=== PATIENT | female | born 1980 | race Caucasian/White ===

== ENCOUNTER 2023-12-27 20:01 | Emergency (ER) | payer OTHER ==
--- NOTE | 2023-12-27 20:08 | ERPHSYRPT ---
- History of Present Illness Time Seen by Provider: 12/27/23 20:08 Source: patient, family Exam Limitations: no limitations Physician History: This is a 43-year-old white female patient who was brought into the emergency department by private vehicle by her significant other complaining of sinus congestion and sinus pressure. Approximately 1 week ago patient was told by her primary care provider that that she does have some sinus congestion complaints but she was told to take DayQuil and other [id number]-icuraiy products. There was mild improvement short-term. However patient states her symptoms returned and she was seen by [facility] in [facility] and told that she had a left earache and likely had sinusitis. Therefore she was started on amoxicillin. She has taken 3 doses of amoxicillin without much benefit per her report. Patient denies cough. Patient denies chest pain, patient denies shortness of breath. She has no abdominal pain. Timing/Duration: gradual onset, weeks (1.5 weeks) ENT Location: ear (L), nose (Sinus pressure and congestion) Prearrival Treatment: prescription meds (Amoxicillin) Modifying Factors: Improves With: nothing Associated Symptoms: ear pain (L), other (Sinus pressure and sinus congestion) Allergies/Adverse Reactions: diphenhydramine [From Benadryl] Allergy (Verified 12/27/23 20:10) haloperidol [From Haldol] Allergy (Verified 12/27/23 20:10) Home Medications: Amoxicillin 400Mg/5Ml [Amoxicillin] 12.5 ml PO TID 12/27/23 [History] Buspirone HCl 7.5 mg PO BID 12/27/23 [History] Levothyroxine Sodium [Synthroid] 50 mcg PO DAILY 12/27/23 [History] Travel Risk - International Travel Have you traveled outside of the country in past 3 weeks: No - Emerging Infectious Disease Are you exhibiting symptoms associated with any current EIDs: No - Review of Systems Constitutional: No Symptoms Eyes: No Symptoms Ears, Nose, & Throat: Nose Congestion, Other (Sinus pressure) Respiratory: No Symptoms Cardiac: No Symptoms Abdominal/Gastrointestinal: No Symptoms Genitourinary Symptoms: No Symptoms Musculoskeletal: No Symptoms Skin: No Symptoms Neurological: No Symptoms Psychological: No Symptoms Endocrine: No Symptoms Hematologic/Lymphatic: No Symptoms Immunological/Allergic: No Symptoms All Other Systems: Reviewed and Negative - Past Medical History Pertinent Past Medical History: Yes - Past Surgical History Past Surgical History: Yes - Nursing Vital Signs Nursing Vital Signs: Initial Vital Signs Temperature 98.6 F 12/27/23 20:13 Pulse Rate 81 12/27/23 20:13 Respiratory Rate 18 12/27/23 20:13 Blood Pressure 125/78 12/27/23 20:13 O2 Sat by Pulse Oximetry 98 12/27/23 20:13 Pain Scale Pain Intensity 2 - Physical Exam General Appearance: no apparent distress, alert, anxiety Eye Exam: bilateral eye: normal inspection, PERRL, EOMI Ear Exam: bilateral ear: auricle normal, canal normal, TM normal Nasal Exam: sinus tenderness (Bilateral maxillary to palpation) Throat Exam: normal, pharynx normal, moist mucus membranes, No dental tenderness, No pharynx swelling, No uvula swelling, No voice changes Neck Exam: normal inspection, non-tender, supple, full range of motion, trachea midline Cardiovascular/Respiratory Exam: chest non-tender, no respiratory distress Abdominal Exam: non-tender Neurologic Exam: alert, oriented x 3, cooperative, unit supervisor II-XII nml as tested, nml cerebellar function, nml station & gait, sensation nml Skin Exam: normal color, warm, dry SpO2 Interpretation: normal O2 Delivery: Room Air - Course Nursing assessment & vital signs reviewed: Yes Ordered Tests: Medication Summary Generic Name Dose Route Start Last Admin Trade Name Cecelia PRN Reason Stop Dose Admin Ceftriaxone Sodium 1,000 mg 12/27/23 20:51 Ceftriaxone Sodium 1000 Mg Inj Vial IM 12/27/23 20:52 STAT ONE - Progress Progress: unchanged Progress Note: 12/27/23 20:55 My medical decision making and the assignment of low complexity to this patient's medical issue today is based on review of the patient's past medical history, review of the patient's medication list, reviewed the patient drug allergy list, history of present illness and physical findings on examination. The workup in this patient does not require laboratory radiographic studies. We will provide the patient with an injection of Rocephin antibiotic intramuscularly as well as an intramuscular injection of Solu-Medrol followed by remotely sending a prescription of prednisone 10 mg orally 3 times a day to her pharmacy. Counseled pt/family regarding: diagnosis, need for follow-up Medical Desision Making - Independent Historian Additional History obtained from: Family - Diagnostic Testing Diagnostic test were ordered, analyzed, and reviewed by me: No - Risk of complications The pt has a mod risk of morbidity or mortality based on: Need for prescription drug management - Departure Departure Disposition: Home Clinical Impression: Sinusitis Condition: Stable Critical Care Time: No Additional Instructions: Drink plenty fluids. Take your medication as prescribed. Return to the emergency department if symptoms worsen. If your symptoms are not worse but persistent, call your primary care provider on 12/30/2023, to make arrangement for follow-up appointment for further evaluation management. Prescriptions: Prednisone 10 mg [Deltasone 10 mg] 10 mg PO TID #12 tablet
[2023-12-27 20:26] VITALS: RESP 18; TEMP 98.6; O2SAT 98
[2023-12-27] MEDS ORDERED: Sterile H2O 10 ml IJ ONE (20:57)
[2023-12-27] MEDS ORDERED: solu-MEDROL ONE (20:57)
[2023-12-27] MEDS ORDERED: Rocephin 1000 MG INJ ONE (20:57)
[2023-12-27] MEDS ORDERED: XYLOCAINE 1% HCL 20 ML MDV ONE (21:00)
[2023-12-27] MEDS: Rocephin 1000 MG INJ IM ONE (21:05)
[2023-12-27] MEDS: solu-MEDROL 125 MG, Sterile H2O 10 ml 2 ML IM ONE (21:07)
[2023-12-27 21:08] VITALS: BP 117/76; PULSE 64
== END 2023-12-27 21:44 | disposition home or self-care (01) ==
LOC: ED 20:01
DX: J32.9 Chronic sinusitis, unspecified (principal); R51.9 Headache, unspecified; Z79.52 Long term (current) use of systemic steroids; Z79.899 Other long term (current) drug therapy
CPT/HCPCS: 96372; 99283; J0696; J2919

== ENCOUNTER 2023-12-29 00:43 | Emergency (ER) | payer OTHER ==
[2023-12-29 00:57] VITALS: TEMP 99
[2023-12-29 01:23] LABS: Appearance Cloudy (Clear); Bacteria Few /HPF (None Seen); Bilirubin Negative (Negative); Blood Negative (Negative); Epithelial Cells Moderate /HPF (None Seen); Glucose, Urine Negative (Negative); Hyaline Casts NONE SEEN /LPF (0-2); Ketones Negative (Negative); Leukocyte Esterase Moderate (Negative); Nitrite Negative (Negative); Ph 5.5 (4.6-8.0); Protein,Urine Dip Trace (Negative); RBC 0-2 /HPF (0-5); Specific Gravity >=1.030 (1.005-1.030); Urobilinogen 0.2 mg/dL (0.2); WBC >100 /HPF (0-5)
--- NOTE | 2023-12-29 01:24 | ERPHSYRPT ---
- History of Present Illness Historian: patient Exam Limitations: no limitations Patient Subjective Stated Complaint: RLQ pain Triage Nursing Assessment: Pt ambulated into ER without diff, spouse at bedside. Pt alert and oriented x4, pt is very anxious. Pt c/o RLQ pain. Abd soft with active bs x4 quad, tender on palpation. Pt has some rebound tenderness. LBM 12/28/23, having some diarrhea off and on. Pt c/o urgency and frequence with voiding. Pt is currently on amoxicillin and prednisone for sinus infection. Physician History: Patient has right lower quadrant pain it has been going on for about 3 days. Walking and movement make it worse. The pain is pretty constant and seems to get worse whenever she moves or walks. Pain is described as sharp and aching. She still has her appendix. She has had no fever or chills. She said that the pain came on whenever she was bending over and its worsened. She does not have a history of ovarian cysts. Allergies/Adverse Reactions: diphenhydramine [From Benadryl] Allergy (Verified 12/29/23 01:07) fentanyl Allergy (Verified 12/29/23 01:46) Hives haloperidol [From Haldol] Allergy (Verified 12/29/23 01:07) Home Medications: Amoxicillin 400Mg/5Ml [Amoxicillin] 12.5 ml PO TID 12/27/23 [History] Buspirone HCl 7.5 mg PO BID 12/27/23 [History] Levothyroxine Sodium [Synthroid] 50 mcg PO DAILY 12/27/23 [History] Methimazole 5 mg PO HS 12/29/23 [History] Hx Tetanus, Diphtheria Vaccination/Date Given: Yes Hx Influenza Vaccination/Date Given: Yes Hx Pneumococcal Vaccination/Date Given: No Travel Risk - International Travel Have you traveled outside of the country in past 3 weeks: No - Emerging Infectious Disease Are you exhibiting symptoms associated with any current EIDs: Yes Symptoms: Abdominal Pain, Diarrhea - Review of Systems Constitutional: No Symptoms Eyes: No Symptoms Abdominal/Gastrointestinal: Abdominal Pain Genitourinary Symptoms: No Symptoms Musculoskeletal: No Symptoms Skin: No Symptoms Neurological: No Symptoms All Other Systems: Reviewed and Negative - Past Medical History Pertinent Past Medical History: Yes Neurological History: No Pertinent History ENT History: No Pertinent History Cardiac History: No Pertinent History Respiratory History: No Pertinent History Endocrine Medical History: Hypothyroidism Musculoskeletal History: No Pertinent History GI Medical History: No Pertinent History History: No Pertinent History Psycho-Social History: Anxiety Female Reproductive Disorders: No Pertinent History - Past Surgical History Past Surgical History: Yes Neuro Surgical History: No Pertinent History Cardiac: No Pertinent History Respiratory: No Pertinent History Gastrointestinal: Cholecystectomy, Other Genitourinary: No Pertinent History Musculoskeletal: No Pertinent History Female Surgical History: No Pertinent History Other Surgical History: gastric sleeve, cyst removed from belly button, oral surgery - Female History Hx Last Menstrual Period: 2 months Hx Now: No - Social History Smoking Status: Current every day smoker How long have you smoked: vape Exposure to second hand smoke: No Drug Use: none - Social Determinants of Health Will the patient participate in the screening: Yes Do you worry about a steady place to live?: No Do you have any problems with any of the following?: No known problems In the past 12 months,have you had to go without utilities?: No Transportation Issues: No Has anyone in your support network made you feel unsafe?: No Have you or anyone in your house had to go without enough: No - Nursing Vital Signs Nursing Vital Signs: Initial Vital Signs Blood Pressure 140/87 12/29/23 00:53 O2 Sat by Pulse Oximetry 98 12/29/23 00:53 Pain Scale Pain Intensity 0 - Physical Exam General Appearance: no apparent distress Eye Exam: PERRL/EOMI Ears, Nose, Throat Exam: normal ENT inspection Respiratory Exam: normal breath sounds, lungs clear, No chest tenderness, No respiratory distress Cardiovascular Exam: regular rate/rhythm Gastrointestinal/Abdomen Exam: soft, tenderness (rlq) Pelvic Exam: not done Rectal Exam: deferred Neurologic Exam: alert, oriented x 3, cooperative Skin Exam: normal color, warm, dry SpO2: 99 - Course Nursing assessment & vital signs reviewed: Yes Ordered Tests: Active Orders 24 hr Category Date Time Status ABDOMEN AND PELVIS W CONTRAST [CT] Stat Exams 12/29/23 01:24 Completed PELVIS TRANS VAGINAL [US] Stat Exams 12/29/23 03:29 Taken AMYLASE Stat Lab 12/29/23 01:39 Completed CBC W DIFF Stat Lab 12/29/23 01:39 Completed CMP Stat Lab 12/29/23 01:39 Completed CULTURE,URINE Stat Lab 12/29/23 01:12 Received UA W/RFX UR CULTURE Stat Lab 12/29/23 01:12 Completed Medication Summary Generic Name Dose Route Start Last Admin Trade Name Cecelia PRN Reason Stop Dose Admin Sodium Chloride 1,000 mls @ 250 mls/hr 12/29/23 01:30 12/29/23 01:39 Sodium Chloride 0.9% 1000 Ml IV 01/28/24 01:29 250 mls/hr .Q4H CASPER Administration Discontinued Medications Generic Name Dose Route Start Last Admin Trade Name Cecelia PRN Reason Stop Dose Admin Fentanyl Citrate 50 mcg 12/29/23 01:23 12/29/23 01:45 Fentanyl Citrate 100 Mcg/2 Ml* Vial IV 12/29/23 01:24 Not Given STAT ONE Fentanyl Citrate Confirm 12/29/23 01:32 Fentanyl Citrate 100 Mcg/2 Ml* Vial Administered 12/29/23 01:33 Dose 100 mcg .ROUTE .STK-MED ONE Hydromorphone HCl Confirm 12/29/23 01:47 Hydromorphone 1 Mg/1ml Inj Administered 12/29/23 01:48 Dose 1 mg .ROUTE .STK-MED ONE Hydromorphone HCl 1 mg 12/29/23 01:45 12/29/23 01:49 Hydromorphone 1 Mg/1ml Inj IV 12/29/23 01:46 1 mg STAT ONE Administration Ondansetron HCl 4 mg 12/29/23 01:23 12/29/23 01:39 Ondansetron Hcl 4 Mg/2 Ml Vial IV 12/29/23 01:24 4 mg STAT ONE Administration Ondansetron HCl Confirm 12/29/23 01:32 Ondansetron Hcl 4 Mg/2 Ml Vial Administered 12/29/23 01:33 Dose 4 mg .ROUTE .STK-MED ONE Laboratory Results - last 24 hr 12/29/23 12/29/23 12/29/23 01:12 01:39 01:39 WBC 9.7 RBC 3.90 L Hgb 11.6 Hct 34.2 MCV 87.7 MCH 29.7 MCHC 33.9 RDW 13.2 Plt Count 281 MPV 10.0 Gran % 77.0 H Immature Gran % (Auto) 0.3 Nucleat RBC Rel Count 0.0 Eos # (Auto) 0.03 L Immature Gran # (Auto) 0.03 Absolute Lymphs (auto) 1.33 Absolute Monos (auto) 0.80 Absolute Nucleated RBC 0.00 Lymphocytes % 13.7 L Monocytes % 8.3 Eosinophils % 0.3 L Basophils % 0.4 Absolute Granulocytes 7.46 H Basophils # 0.04 Sodium 138 Potassium 3.9 Chloride 104 Carbon Dioxide 26 Anion Gap 10.8 BUN 20 H Creatinine 0.72 Estimated GFR 107.7 Glucose 123 H Calcium 9.3 Total Bilirubin 0.30 AST 34 ALT 19 Alkaline Phosphatase 64 Serum Total Protein 7.2 Albumin 4.3 Amylase 75 Urine Color Yellow Urine Appearance Cloudy A Urine pH 5.5 Ur Specific [place] >=1.030 A Urine Protein Trace A Urine Glucose (UA) Negative Urine Ketones Negative Urine Blood Negative Urine Nitrite Negative Urine Bilirubin Negative Urine Urobilinogen 0.2 Ur Leukocyte Esterase Moderate A U Hyaline Cast (Auto) NONE SEEN Urine Microscopic RBC 0-2 Urine Microscopic WBC >100 A Ur Epithelial Cells Moderate A Urine Bacteria Few A Urine Culture Reflexed YES A CT was done and showed a ovarian cyst nothing else there is no appendicitis. I went ahead and got an ultrasound to rule out torsion that was negative as well 2. There is a cyst there. I think that is probably the source of her pain. At this time we will send her home with some Toradol. Lab/Rad Data: Laboratory Result Diagrams 12/29/23 01:39 12/29/23 01:39 Laboratory Results 12/29/23 12/29/23 12/29/23 Range/Units 01:39 01:39 01:12 WBC 9.7 (3.98-10.04) x10^3/uL RBC 3.90 L (3.93-5.22) x10^6/uL Hgb 11.6 (11.2-15.7) g/dL Hct 34.2 (34.1-44.9) % MCV 87.7 (79.4-94.8) fL MCH 29.7 (25.6-32.2) pg MCHC 33.9 (32.2-35.5) g/dL RDW 13.2 (11.7-14.4) % Plt Count 281 (182-369) x10^3/uL MPV 10.0 (9.4-12.3) fL Gran % 77.0 H (34.0-71.1) % Immature Gran % (Auto) 0.3 (0.001-0.429) % Nucleat RBC Rel Count 0.0 (0.00-0.2) % Eos # (Auto) 0.03 L (0.04-0.36) x10^3/uL Immature Gran # (Auto) 0.03 (0.001-0.031) x10^3u/L Absolute Lymphs (auto) 1.33 (1.18-3.74) x10^3/uL Absolute Monos (auto) 0.80 (0.24-0.86) x10^3/uL Absolute Nucleated RBC 0.00 (0.00-0.012) x10^3u/L Lymphocytes % 13.7 L (19.3-51.7) % Monocytes % 8.3 (4.7-12.5) % Eosinophils % 0.3 L (0.7-5.8) % Basophils % 0.4 (0.1-1.2) % Absolute Granulocytes 7.46 H (1.56-6.13) x10^3/uL Basophils # 0.04 (0.01-0.08) x10^3/uL Sodium 138 (135-145) mmol/L Potassium 3.9 (3.5-5.1) mmol/L Chloride 104 (98-107) mmol/L Carbon Dioxide 26 (22-30) mmol/L Anion Gap 10.8 (5-15) MEQ/L BUN 20 H (7-17) mg/dL Creatinine 0.72 (0.52-1.04) mg/dL Estimated GFR 107.7 ML/MIN Glucose 123 H (74-106) mg/dL Calcium 9.3 (8.4-10.2) mg/dL Total Bilirubin 0.30 (0.2-1.3) mg/dL AST 34 (14-36) U/L ALT 19 (0-35) U/L Alkaline Phosphatase 64 (38-126) U/L Serum Total Protein 7.2 (6.3-8.2) g/dL Albumin 4.3 (3.5-5.0) g/dL Amylase 75 (30-110) U/L Urine Color Yellow (Yellow) Urine Appearance Cloudy A (Clear) Urine pH 5.5 (4.6-8.0) Ur Specific [place] >=1.030 A (1.005-1.030) Urine Protein Trace A (Negative) Urine Glucose (UA) Negative (Negative) mg/dL Urine Ketones Negative (Negative) Urine Blood Negative (Negative) Urine Nitrite Negative (Negative) Urine Bilirubin Negative (Negative) Urine Urobilinogen 0.2 (0.2) mg/dL Ur Leukocyte Esterase Moderate A (Negative) U Hyaline Cast (Auto) NONE SEEN (0-2) /LPF Urine Microscopic RBC 0-2 (0-5) /HPF Urine Microscopic WBC >100 A (0-5) /HPF Ur Epithelial Cells Moderate A (None Seen) /HPF Urine Bacteria Few A (None Seen) /HPF Urine Culture Reflexed YES (NO) - Departure Clinical Impression: Ovarian cyst Qualifiers: Laterality: right Qualified Code(s): N83.201 - Unspecified ovarian cyst, right side Condition: Stable Critical Care Time: No Referrals: Provider,Unknown [Primary Care Provider] - Follow up/PCP as directed
[2023-12-29 01:28] LABS: ADD URINE CULTURE? YES (NO)
[2023-12-29] MEDS ORDERED: Sodium Chloride 0.9% 1000 ML 1,000 ML ONE (01:32)
[2023-12-29] MEDS ORDERED: Zofran 4 MG/2 ML VIAL ONE (01:32)
[2023-12-29] MEDS ORDERED: SUBLIMAZE 100 MCG/2 ML ONE (01:32)
[2023-12-29] MEDS: Zofran 4 MG/2 ML VIAL IV ONE (01:39)
[2023-12-29] MEDS: Sodium Chloride 0.9% 1000 ML 1,000 ML IV SCH (01:39)
[2023-12-29] MEDS: SUBLIMAZE 100 MCG/2 ML IV ONE (01:39)
[2023-12-29 01:42] LABS: Absolute Neutrophil Ct (ANC) 7.46 x10^3/uL (1.56-6.13); BASOPHIL % 0.4 % (0.1-1.2); Basophil (Absolute #) 0.04 x10^3/uL (0.01-0.08); Eosinophil % 0.3 % (0.7-5.8); Eosinophil (Absolute #) 0.03 x10^3/uL (0.04-0.36); Hematocrit 34.2 % (34.1-44.9); Hemoglobin 11.6 g/dL (11.2-15.7); IMMATURE GRAN # 0.03 x10^3u/L (0.001-0.031); IMMATURE GRAN % 0.3 % (0.001-0.429); Lymphocyte (Absolute #) 1.33 x10^3/uL (1.18-3.74); Lymphocytes % 13.7 % (19.3-51.7); Mean Cell Volume 87.7 fL (79.4-94.8); Mean Corpuscular Hemoglobin 29.7 pg (25.6-32.2); Mean Corpuscular Hgb Concent. 33.9 g/dL (32.2-35.5); Monocytes % 8.3 % (4.7-12.5); Platelet Count 281 x10^3/uL (182-369); Red Cell Distribution Width 13.2 % (11.7-14.4); White Blood Count 9.7 x10^3/uL (3.98-10.04)
[2023-12-29] MEDS ORDERED: Hydromorphone 1 mg/ml Injection ONE (01:47)
[2023-12-29] MEDS: Hydromorphone 1 mg/ml Injection IV ONE (01:49)
[2023-12-29 01:58] LABS: ALBUMIN 4.3 g/dL (3.5-5.0); ANION GAP 10.8 MEQ/L (5-15); BILIRUBIN,TOTAL 0.3 mg/dL (0.2-1.3); Calcium 9.3 mg/dL (8.4-10.2); Creatinine 1 0.72 mg/dL (0.52-1.04); EST GLOMERULAR FILTRATION RATE 107.7 ML/MIN; Potassium 3.9 mmol/L (3.5-5.1); Total Protein 7.2 g/dL (6.3-8.2)
--- NOTE | 2023-12-29 03:26 | XRAY ---
CLINICAL HISTORY: rlq pain COMPARISON: None. TECHNIQUE: CT of the abdomen and pelvis was performed with axial images as well as sagittal and coronal reconstruction images with intravenous contrast. One of the following dose reduction techniques was utilized for this exam: Automated exposure control, adjustment of the mA and/or kV according to patient size, and use of iterative reconstruction. FINDINGS: Mild posterior bibasilar ground glass veiling likely gravitational. The liver is average in size displaying homogeneous parenchymal attenuation. No intrahepatic or extrahepatic bile duct dilation. Gall bladder is surrggically removed with clearr operative bed. Unremarkable appearing pancreas. No pancreatic mass or ductal dilatation is seen. Unremarkable appearing spleen. The adrenal glands are normal. The kidneys appear unremarkable with no cysts masses or hydronephrosis. The ureters are normal with no stones. Unremarkable abdominal aorta without specific evidence of aneurysm or dissection. IVC is normal. Evidence of gastrtic sleeve procdure with no associated complications. Unremarkable appearing duodenum. Small Bowel and colon are non-distended with no abnormality The appendix is unremarrkable. No free air and no ascites. No free intraperitoneal air is seen. Bladder is unremarkable with no stones. Right ovarian cyst is seen measuring 2.5 cm. Left ovary is unremarkable. Uterus is unremarkable No bony abnormality detected. IMPRESSION: 1. No acute findings. 2. Right ovarian functional cyst. [facility] was called at [phone] at 2:19 AM SIL[facility]ASER ,12/29/[address] Oakley was informed about the significant medical findings in the report. Electronically Signed by: Ambreen Duran MD. (12/29/2023 03:22:43 EDT)
[2023-12-29 03:58] VITALS: RESP 16
[2023-12-29 05:05] VITALS: BP 106/63; PULSE 61; O2SAT 99
--- NOTE | 2023-12-29 07:05 | XRAY ---
Indication: Right adnexal pain. Two-dimensional transvaginal pelvic sonogram performed. Comparison: None Uterus anteverted measuring 7.0 x 3.2 x 3.9 cm. Lower uterine segment demonstrates 9 mm nabothian cyst. Endometrial stripe measures 1 cm. No endometrial cavity mass or fluid collection. Right ovary measures 3.1 x 3.2 x 3.3 cm and left measures 3.0 x 2.8 x 2.3 cm. Normal follicular cysts and perfusion bilaterally. 2.3 x 2.1 x 1.6 and a dominant right ovary cyst. No suspicious adnexal mass or free fluid. Impression: 2.3 cm dominant right ovary cyst. Tiny nabothian cyst. Remaining transvaginal pelvic sonogram is negative. Comment: Preliminary report was given.
== END 2023-12-29 05:28 | disposition home or self-care (01) ==
LOC: ED 00:43
DX: N83.201 Unspecified ovarian cyst, right side (principal); R10.31 Right lower quadrant pain; Z79.899 Other long term (current) drug therapy; Z72.0 Tobacco use
CPT/HCPCS: 36000; 36415; 74177; 76830; 80053; 81001; 82150; 85025; 87086; 96374; 96375; 99284; J1170; J2405; J3010

== ENCOUNTER 2023-12-29 21:47 | Emergency (ER) | payer OTHER ==
[2023-12-29 22:35] VITALS: TEMP 98.1
--- NOTE | 2023-12-30 00:14 | ERPHSYRPT ---
- History of Present Illness Time Seen by Provider: 12/29/23 23:58 Source: patient Exam Limitations: no limitations Patient Subjective Stated Complaint: pt states she thinks she may be having a panic attack and hasnt been feeling right today. Triage Nursing Assessment: pt alert and oriented, answers questions approp. pt ambulates into room with steady gait noted. respirations nonlabored. skin warm and dry. pupils equal and reactive. Physician History: Pt states she has had anxiety since September 2023 with chest pain and nausea 8 hours ago; denies vomiting, fever, headache. Allergies/Adverse Reactions: diphenhydramine [From Benadryl] Allergy (Unknown, Verified 12/29/23 22:35) fentanyl Allergy (Unknown, Verified 12/29/23 22:35) Hives haloperidol [From Haldol] Allergy (Unknown, Verified 12/29/23 22:35) Home Medications: Amoxicillin 400Mg/5Ml [Amoxicillin] 12.5 ml PO TID 12/27/23 [History] Buspirone HCl 7.5 mg PO BID 12/27/23 [History] Levothyroxine Sodium [Synthroid] 50 mcg PO DAILY 12/27/23 [History] Methimazole 5 mg PO HS 12/29/23 [History] Hx Tetanus, Diphtheria Vaccination/Date Given: Yes Hx Influenza Vaccination/Date Given: Yes Hx Pneumococcal Vaccination/Date Given: No Immunizations Up to Date: Yes Travel Risk - International Travel Have you traveled outside of the country in past 3 weeks: No - Emerging Infectious Disease Are you exhibiting symptoms associated with any current EIDs: No Symptoms: Abdominal Pain, Diarrhea - Past Medical History Pertinent Past Medical History: Yes Neurological History: No Pertinent History ENT History: No Pertinent History Cardiac History: No Pertinent History Respiratory History: No Pertinent History Endocrine Medical History: Hypothyroidism Musculoskeletal History: No Pertinent History GI Medical History: No Pertinent History History: No Pertinent History Psycho-Social History: Anxiety Female Reproductive Disorders: No Pertinent History - Past Surgical History Past Surgical History: Yes Neuro Surgical History: No Pertinent History Cardiac: No Pertinent History Respiratory: No Pertinent History Gastrointestinal: Cholecystectomy, Other Genitourinary: No Pertinent History Musculoskeletal: No Pertinent History Female Surgical History: No Pertinent History Other Surgical History: gastric sleeve, cyst removed from belly button, oral surgery - Female History Hx Last Menstrual Period: 2 months Hx Now: No - Social History Smoking Status: Former smoker How long have you smoked: vape Exposure to second hand smoke: No Drug Use: none - Social Determinants of Health Will the patient participate in the screening: Yes Do you worry about a steady place to live?: No Do you have any problems with any of the following?: No known problems In the past 12 months,have you had to go without utilities?: No Transportation Issues: No Has anyone in your support network made you feel unsafe?: No Have you or anyone in your house had to go without enough: No - Review of Systems Constitutional: No Fever Cardiac: Chest Pain Abdominal/Gastrointestinal: Nausea, No Abdominal Pain, No Vomiting Neurological: No Headache Psychological: Anxiety - Nursing Vital Signs Nursing Vital Signs: Initial Vital Signs Temperature 98.1 F 12/29/23 22:22 Pulse Rate 61 12/29/23 22:22 Respiratory Rate 16 12/29/23 22:22 Blood Pressure 128/68 12/29/23 22:22 O2 Sat by Pulse Oximetry 100 12/29/23 22:22 Pain Scale Pain Intensity 0 - Physical Exam General Appearance: alert, anxiety Eyes, Ears, Nose, Throat Exam: TMs normal, pharynx normal Neck Exam: normal inspection Respiratory Exam: lungs clear Cardiovascular Exam: normal heart sounds Gastrointestinal/Abdominal Exam: normal bowel sounds Neurological Exam: alert Appearance: appropriate appearance Behavior/Eye Contact/Speech: alert & cooperative Thoughts/Hallucinations: normal thought pattern Skin Exam: warm, dry SpO2 Interpretation: normal SpO2: 100 O2 Delivery: Room Air - Course Nursing assessment & vital signs reviewed: Yes EKG Interpreted by Me: RATE (65), Sinus Rhythm, NORMAL AXIS, Other (QTc = 402) - Radiology Exams Chest X-ray Interpretation: Interpreted by me, No Pneumonia Ordered Tests: Active Orders 24 hr Category Date Time Status EKG-ER Only STAT Care 12/30/23 00:10 Active IV Insertion STAT Care 12/30/23 00:10 Active CHEST 2 VIEWS (PA AND LAT) Stat Exams 12/30/23 00:12 Taken AMYLASE Stat Lab 12/30/23 01:21 Completed CBC W DIFF Stat Lab 12/30/23 01:21 Completed CMP Stat Lab 12/30/23 01:21 Completed LIPASE Stat Lab 12/30/23 01:21 Completed MAGNESIUM Stat Lab 12/30/23 01:21 Completed TROPONIN Q4H Lab 12/30/23 01:21 Completed TROPONIN Q4H Lab 12/30/23 04:15 Ordered TROPONIN Q4H Lab 12/30/23 08:15 Ordered TSH [TSH, 3RD Generation] Stat Lab 12/30/23 01:21 Completed UA W/RFX UR CULTURE Stat Lab 12/30/23 00:00 Completed Medication Summary Generic Name Dose Route Start Last Admin Trade Name Freq PRN Reason Stop Dose Admin Sodium Chloride 1,000 mls @ 100 mls/hr 12/30/23 00:15 12/30/23 01:10 Sodium Chloride 0.9% 1000 Ml IV 01/29/24 00:14 Not Given .Q10H CASPER Discontinued Medications Generic Name Dose Route Start Last Admin Trade Name Freq PRN Reason Stop Dose Admin Lorazepam 1 mg 12/30/23 00:10 12/30/23 01:08 Lorazepam 1 Mg Tablet PO 12/30/23 00:11 1 mg STAT ONE Administration Lorazepam Confirm 12/30/23 01:06 Lorazepam 1 Mg Tablet Administered 12/30/23 01:07 Dose 1 mg .ROUTE .STK-MED ONE Lab/Rad Data: Laboratory Result Diagrams 12/30/23 01:21 12/30/23 01:21 Laboratory Results 12/30/23 12/30/23 12/30/23 Range/Units 01:21 01:21 01:21 WBC (3.98-10.04) x10^3/uL RBC (3.93-5.22) x10^6/uL Hgb (11.2-15.7) g/dL Hct (34.1-44.9) % MCV (79.4-94.8) fL MCH (25.6-32.2) pg MCHC (32.2-35.5) g/dL RDW (11.7-14.4) % Plt Count (182-369) x10^3/uL MPV (9.4-12.3) fL Gran % (34.0-71.1) % Immature Gran % (Auto) (0.001-0.429) % Nucleat RBC Rel Count (0.00-0.2) % Eos # (Auto) (0.04-0.36) x10^3/uL Immature Gran # (Auto) (0.001-0.031) x10^3u/L Absolute Lymphs (auto) (1.18-3.74) x10^3/uL Absolute Monos (auto) (0.24-0.86) x10^3/uL Absolute Nucleated RBC (0.00-0.012) x10^3u/L Lymphocytes % (19.3-51.7) % Monocytes % (4.7-12.5) % Eosinophils % (0.7-5.8) % Basophils % (0.1-1.2) % Absolute Granulocytes (1.56-6.13) x10^3/uL Basophils # (0.01-0.08) x10^3/uL Sodium (135-145) mmol/L Potassium (3.5-5.1) mmol/L Chloride (98-107) mmol/L Carbon Dioxide (22-30) mmol/L Anion Gap (5-15) MEQ/L BUN (7-17) mg/dL Creatinine (0.52-1.04) mg/dL Estimated GFR ML/MIN Glucose (74-106) mg/dL Calcium (8.4-10.2) mg/dL Magnesium 2.1 (1.6-2.3) mg/dL Total Bilirubin (0.2-1.3) mg/dL AST (14-36) U/L ALT (0-35) U/L Alkaline Phosphatase (38-126) U/L Troponin I < 0.012 (0.000-0.033) ng/mL Serum Total Protein (6.3-8.2) g/dL Albumin (3.5-5.0) g/dL Amylase (30-110) U/L Lipase (23-300) U/L TSH 3rd Generation 3.946 (0.470-4.680) mIU/L Urine Color (Yellow) Urine Appearance (Clear) Urine pH (4.6-8.0) Ur Specific [place] (1.005-1.030) Urine Protein (Negative) Urine Glucose (UA) (Negative) mg/dL Urine Ketones (Negative) Urine Blood (Negative) Urine Nitrite (Negative) Urine Bilirubin (Negative) Urine Urobilinogen (0.2) mg/dL Ur Leukocyte Esterase (Negative) U Hyaline Cast (Auto) (0-2) /LPF Urine Microscopic RBC (0-5) /HPF Urine Microscopic WBC (0-5) /HPF Ur Epithelial Cells (None Seen) /HPF Urine Bacteria (None Seen) /HPF Urine Culture Reflexed (NO) 12/30/23 12/30/23 12/30/23 Range/Units 01:21 01:21 00:00 WBC 7.6 (3.98-10.04) x10^3/uL RBC 4.05 (3.93-5.22) x10^6/uL Hgb 12.3 (11.2-15.7) g/dL Hct 36.2 (34.1-44.9) % MCV 89.4 (79.4-94.8) fL MCH 30.4 (25.6-32.2) pg MCHC 34.0 (32.2-35.5) g/dL RDW 13.4 (11.7-14.4) % Plt Count 279 (182-369) x10^3/uL MPV 9.7 (9.4-12.3) fL Gran % 58.8 (34.0-71.1) % Immature Gran % (Auto) 0.3 (0.001-0.429) % Nucleat RBC Rel Count 0.0 (0.00-0.2) % Eos # (Auto) 0.09 (0.04-0.36) x10^3/uL Immature Gran # (Auto) 0.02 (0.001-0.031) x10^3u/L Absolute Lymphs (auto) 2.37 (1.18-3.74) x10^3/uL Absolute Monos (auto) 0.58 (0.24-0.86) x10^3/uL Absolute Nucleated RBC 0.00 (0.00-0.012) x10^3u/L Lymphocytes % 31.2 (19.3-51.7) % Monocytes % 7.6 (4.7-12.5) % Eosinophils % 1.2 (0.7-5.8) % Basophils % 0.9 (0.1-1.2) % Absolute Granulocytes 4.47 (1.56-6.13) x10^3/uL Basophils # 0.07 (0.01-0.08) x10^3/uL Sodium 139 (135-145) mmol/L Potassium 4.0 (3.5-5.1) mmol/L Chloride 104 (98-107) mmol/L Carbon Dioxide 27 (22-30) mmol/L Anion Gap 12.4 (5-15) MEQ/L BUN 11 (7-17) mg/dL Creatinine 0.72 (0.52-1.04) mg/dL Estimated GFR 107.7 ML/MIN Glucose 101 (74-106) mg/dL Calcium 9.2 (8.4-10.2) mg/dL Magnesium (1.6-2.3) mg/dL Total Bilirubin 0.80 (0.2-1.3) mg/dL AST 29 (14-36) U/L ALT 18 (0-35) U/L Alkaline Phosphatase 61 (38-126) U/L Troponin I (0.000-0.033) ng/mL Serum Total Protein 7.2 (6.3-8.2) g/dL Albumin 4.2 (3.5-5.0) g/dL Amylase 72 (30-110) U/L Lipase 137 (23-300) U/L TSH 3rd Generation (0.470-4.680) mIU/L Urine Color Yellow (Yellow) Urine Appearance Clear (Clear) Urine pH 6.5 (4.6-8.0) Ur Specific [place] <=1.005 (1.005-1.030) Urine Protein Negative (Negative) Urine Glucose (UA) Negative (Negative) mg/dL Urine Ketones Negative (Negative) Urine Blood Negative (Negative) Urine Nitrite Negative (Negative) Urine Bilirubin Negative (Negative) Urine Urobilinogen 0.2 (0.2) mg/dL Ur Leukocyte Esterase Trace A (Negative) U Hyaline Cast (Auto) NONE SEEN (0-2) /LPF Urine Microscopic RBC 0-2 (0-5) /HPF Urine Microscopic WBC 0-2 (0-5) /HPF Ur Epithelial Cells None Seen (None Seen) /HPF Urine Bacteria None Seen (None Seen) /HPF Urine Culture Reflexed NO (NO) - Progress Progress: improved Counseled pt/family regarding: lab results, diagnosis, need for follow-up, rad results Medical Desision Making - Diagnostic Testing Diagnostic test were ordered, analyzed, and reviewed by me: Yes Radiological Interpretation: Interpreted by me - Departure Departure Disposition: Home Clinical Impression: Anxiety, Chest pain Condition: Stable Critical Care Time: No Referrals: Provider,Unknown [Primary Care Provider] - Follow up/PCP as directed Instructions: Anxiety, Adult (DC), Chest Pain, Adult ED Additional Instructions: Follow up with private doctor tomorrow. Forms: Work/School Release Form
[2023-12-30 00:58] LABS: Appearance Clear (Clear); Bacteria None Seen /HPF (None Seen); Bilirubin Negative (Negative); Blood Negative (Negative); Epithelial Cells None Seen /HPF (None Seen); Glucose, Urine Negative (Negative); Hyaline Casts NONE SEEN /LPF (0-2); Ketones Negative (Negative); Leukocyte Esterase Trace (Negative); Nitrite Negative (Negative); Ph 6.5 (4.6-8.0); Protein,Urine Dip Negative (Negative); RBC 0-2 /HPF (0-5); Specific Gravity <=1.005 (1.005-1.030); Urobilinogen 0.2 mg/dL (0.2); WBC 0-2 /HPF (0-5)
[2023-12-30 01:00] LABS: ADD URINE CULTURE? NO (NO)
[2023-12-30] MEDS ORDERED: Ativan 1 MG ONE (01:06)
[2023-12-30] MEDS: Ativan 1 MG PO ONE (01:08)
[2023-12-30] MEDS: Sodium Chloride 0.9% 1000 ML 1,000 ML IV SCH (01:10)
[2023-12-30 01:24] LABS: Absolute Neutrophil Ct (ANC) 4.47 x10^3/uL (1.56-6.13); BASOPHIL % 0.9 % (0.1-1.2); Basophil (Absolute #) 0.07 x10^3/uL (0.01-0.08); Eosinophil % 1.2 % (0.7-5.8); Eosinophil (Absolute #) 0.09 x10^3/uL (0.04-0.36); Hematocrit 36.2 % (34.1-44.9); Hemoglobin 12.3 g/dL (11.2-15.7); IMMATURE GRAN # 0.02 x10^3u/L (0.001-0.031); IMMATURE GRAN % 0.3 % (0.001-0.429); Lymphocyte (Absolute #) 2.37 x10^3/uL (1.18-3.74); Lymphocytes % 31.2 % (19.3-51.7); Mean Cell Volume 89.4 fL (79.4-94.8); Mean Corpuscular Hemoglobin 30.4 pg (25.6-32.2); Mean Platelet Volume 9.7 fL (9.4-12.3); Monocyte (Absolute #) 0.58 x10^3/uL (0.24-0.86); Monocytes % 7.6 % (4.7-12.5); Neutrophil % 58.8 % (34.0-71.1); Platelet Count 279 x10^3/uL (182-369); Red Blood Count 4.05 x10^6/uL (3.93-5.22); Red Cell Distribution Width 13.4 % (11.7-14.4); White Blood Count 7.6 x10^3/uL (3.98-10.04)
[2023-12-30 01:32] LABS: ALBUMIN 4.2 g/dL (3.5-5.0); ANION GAP 12.4 MEQ/L (5-15); BILIRUBIN,TOTAL 0.8 mg/dL (0.2-1.3); Calcium 9.2 mg/dL (8.4-10.2); Creatinine 1 0.72 mg/dL (0.52-1.04); EST GLOMERULAR FILTRATION RATE 107.7 ML/MIN; Total Protein 7.2 g/dL (6.3-8.2)
[2023-12-30 03:08] VITALS: BP 124/67; PULSE 48; RESP 18; O2SAT 98
--- NOTE | 2023-12-30 08:33 | XRAY ---
Indication: Pain. Comparison: None PA/lateral chest demonstrates normal heart, lungs, and bony thorax.
== END 2023-12-30 03:12 | disposition home or self-care (01) ==
LOC: ED 21:47
DX: F41.9 Anxiety disorder, unspecified (principal); R07.9 Chest pain, unspecified; R11.0 Nausea; Z79.899 Other long term (current) drug therapy
CPT/HCPCS: 36415; 71046; 80053; 81001; 82150; 83690; 83735; 84436; 84443; 84484; 85025; 93005; 99283; A9270-GY

== ENCOUNTER 2024-01-03 00:43 | Emergency (ER) | payer OTHER ==
[2024-01-03] MEDS ORDERED: CLARITIN 10 MG ONE (01:16)
== END 2024-01-03 01:30 | disposition home or self-care (01) ==
LOC: ED 00:43
DX: J32.9 Chronic sinusitis, unspecified (principal); H92.02 Otalgia, left ear; Z79.899 Other long term (current) drug therapy
CPT/HCPCS: 99281; A9270-GY

== ENCOUNTER 2024-01-15 18:24 | Emergency (ER) | payer OTHER ==
[2024-01-15 19:11] VITALS: TEMP 98.2
[2024-01-15 19:26] LABS: Absolute Neutrophil Ct (ANC) 5.54 x10^3/uL (1.56-6.13); BASOPHIL % 0.6 % (0.1-1.2); Basophil (Absolute #) 0.05 x10^3/uL (0.01-0.08); Eosinophil % 1.3 % (0.7-5.8); Eosinophil (Absolute #) 0.11 x10^3/uL (0.04-0.36); Hematocrit 37.1 % (34.1-44.9); Hemoglobin 12.4 g/dL (11.2-15.7); IMMATURE GRAN # 0.02 x10^3u/L (0.001-0.031); IMMATURE GRAN % 0.2 % (0.001-0.429); Lymphocyte (Absolute #) 1.81 x10^3/uL (1.18-3.74); Mean Cell Volume 89.6 fL (79.4-94.8); Mean Corpuscular Hgb Concent. 33.4 g/dL (32.2-35.5); Mean Platelet Volume 9.9 fL (9.4-12.3); Monocyte (Absolute #) 0.68 x10^3/uL (0.24-0.86); Monocytes % 8.3 % (4.7-12.5); Neutrophil % 67.6 % (34.0-71.1); Platelet Count 280 x10^3/uL (182-369); Red Blood Count 4.14 x10^6/uL (3.93-5.22); Red Cell Distribution Width 13.7 % (11.7-14.4); White Blood Count 8.2 x10^3/uL (3.98-10.04)
[2024-01-15 19:31] LABS: ALBUMIN 4.2 g/dL (3.5-5.0); ANION GAP 8.1 MEQ/L (5-15); BILIRUBIN,TOTAL 0.5 mg/dL (0.2-1.3); Calcium 9.3 mg/dL (8.4-10.2); Creatinine 1 0.75 mg/dL (0.52-1.04); EST GLOMERULAR FILTRATION RATE 102.5 ML/MIN; MAGNESIUM 1.9 mg/dL (1.6-2.3); Potassium 3.6 mmol/L (3.5-5.1); Total Protein 7.2 g/dL (6.3-8.2)
[2024-01-15 19:45] LABS: Appearance Clear (Clear); Bacteria None Seen /HPF (None Seen); Bilirubin Negative (Negative); Blood Negative (Negative); Epithelial Cells None Seen /HPF (None Seen); Glucose, Urine Negative (Negative); Hyaline Casts NONE SEEN /LPF (0-2); Ketones Negative (Negative); Leukocyte Esterase Trace (Negative); Nitrite Negative (Negative); Ph 5.5 (4.6-8.0); Protein,Urine Dip Negative (Negative); RBC 0-2 /HPF (0-5); Specific Gravity <=1.005 (1.005-1.030); Urobilinogen 0.2 mg/dL (0.2)
[2024-01-15 19:52] LABS: ADD URINE CULTURE? NO (NO)
--- NOTE | 2024-01-15 19:55 | ERPHSYRPT ---
- History of Present Illness Time Seen by Provider: 01/15/24 19:10 Source: patient Exam Limitations: no limitations Patient Subjective Stated Complaint: Tachycardia Triage Nursing Assessment: Patient ambulated back to ED and transferred self to bed. Patient A+O X3. Patient's skin pink, warm and dry. Patient complains of tachycardia. Patient states she woke up this am around 5:50 am and started feeling like her heart was racing and just stated she just felt panicked. Patient states she kept feeling like this all day. Patient complains of occas ional muscle weakness. Patient states she just feels "weird". Patient had been started on Methimazole 5mg in October, which dropped her thyroid levels to low so a diferrent practioner started her on Synthroid in November, but did not take her off of her sythroid until December when the practicioner realized she was on both meds for hypothyroidm and hyperthyroidism. Physician History: 33-year-old female presents to our ED for evaluation of heart palpitation and feeling anxious. Patient states symptoms have been ongoing all day. She describes intermittent muscle cramping. Patient has a history of hyperthyroidism currently on methimazole. Patient denies pain. No nausea vom iting or diaphoresis. No chest pain. Symptoms are moderate in intensity. No specific worsening improving factors. Patient voices no other complaints or concerns at this time. Portions of this note were created with voice recognition technology. There may be grammatical, spelling, punctuation or sound alike errors Timing/Duration: today Severity: moderate Modifying Factors: Improves With: nothing Associated Symptoms: denies symptoms Allergies/Adverse Reactions: diphenhydramine [From Benadryl] Allergy (Unknown, Verified 01/15/24 18:51) fentanyl Allergy (Unknown, Verified 01/15/24 18:51) Hives haloperidol [From Haldol] Allergy (Unknown, Verified 01/15/24 18:51) levothyroxine sodium [From Synthroid] Allergy (Verified 01/15/24 18:51) Home Medications: Buspirone HCl 7.5 mg PO TID 12/27/23 [History] Methimazole 2.5 mg PO HS 12/29/23 [History] Hx Tetanus, Diphtheria Vaccination/Date Given: Yes Hx Influenza Vaccination/Date Given: Yes Hx Pneumococcal Vaccination/Date Given: No Immunizations Up to Date: Yes Travel Risk - International Travel Have you traveled outside of the country in past 3 weeks: No - Emerging Infectious Disease Are you exhibiting symptoms associated with any current EIDs: No Symptoms: Abdominal Pain, Diarrhea - Review of Systems Constitutional: No Symptoms, No Fever, No Chills Eyes: No Symptoms Ears, Nose, & Throat: No Symptoms Respiratory: No Symptoms, No Cough, No Dyspnea Cardiac: No Symptoms, No Chest Pain, No Edema, No Syncope Abdominal/Gastrointestinal: No Symptoms, No Abdominal Pain, No Nausea, No Vomiting, No Diarrhea Genitourinary Symptoms: No Symptoms, No Dysuria Musculoskeletal: No Symptoms, No Back Pain, No Neck Pain Skin: No Symptoms, No Rash Neurological: No Symptoms, No Dizziness, No Focal Weakness, No Sensory Changes Psychological: No Symptoms Endocrine: No Symptoms Hematologic/Lymphatic: No Symptoms Immunological/Allergic: No Symptoms All Other Systems: Reviewed and Negative - Past Medical History Pertinent Past Medical History: Yes Neurological History: No Pertinent History ENT History: No Pertinent History Cardiac History: No Pertinent History Respiratory History: No Pertinent History Endocrine Medical History: Hypothyroidism Musculoskeletal History: No Pertinent History GI Medical History: No Pertinent History History: No Pertinent History Psycho-Social History: Anxiety Female Reproductive Disorders: No Pertinent History - Past Surgical History Past Surgical History: Yes Neuro Surgical History: No Pertinent History Cardiac: No Pertinent History Respiratory: No Pertinent History Gastrointestinal: Cholecystectomy, Other Genitourinary: No Pertinent History Musculoskeletal: No Pertinent History Female Surgical History: No Pertinent History Other Surgical History: gastric sleeve, cyst removed from belly button, oral surgery - Female History Hx Last Menstrual Period: [place] Hx Now: No - Social History Smoking Status: Former smoker How long have you smoked: vape Exposure to second hand smoke: No Drug Use: none - Social Determinants of Health Will the patient participate in the screening: Yes Do you worry about a steady place to live?: No Do you have any problems with any of the following?: No known problems In the past 12 months,have you had to go without utilities?: No Transportation Issues: No Has anyone in your support network made you feel unsafe?: No Have you or anyone in your house had to go without enough: No - Nursing Vital Signs Nursing Vital Signs: Initial Vital Signs Temperature 98.2 F 01/15/24 18:54 Pulse Rate 70 01/15/24 18:54 Respiratory Rate 20 01/15/24 18:54 Blood Pressure 114/67 01/15/24 18:54 O2 Sat by Pulse Oximetry 100 01/15/24 18:54 Pain Scale Pain Intensity 0 - Physical Exam General Appearance: no apparent distress, alert Eye Exam: PERRL/EOMI, eyes nml inspection Ears, Nose, Throat Exam: normal ENT inspection, moist mucous membranes Neck Exam: normal inspection, full range of motion Respiratory Exam: normal breath sounds, lungs clear, No respiratory distress Cardiovascular Exam: regular rate/rhythm, normal heart sounds, normal peripheral pulses Gastrointestinal/Abdomen Exam: soft, normal bowel sounds, No tenderness, No mass Back Exam: normal inspection, normal range of motion, No CVA tenderness, No vertebral tenderness Extremity Exam: normal inspection, normal range of motion, pelvis stable Neurologic Exam: alert, oriented x 3, cooperative, normal mood/affect, sensation nml, No motor deficits Skin Exam: normal color, warm, dry, No rash Lymphatic Exam: No adenopathy SpO2 Interpretation: normal SpO2: 98 O2 Delivery: Room Air - Course Nursing assessment & vital signs reviewed: Yes EKG Interpreted by Me: RATE (75), Sinus Rhythm, NORMAL AXIS, NORMAL INTERVALS, NORMAL QRS Ordered Tests: Active Orders 24 hr Category Date Time Status Furnace Cleaner STAT Care 01/15/24 19:17 Active EKG-ER Only STAT Care 01/15/24 19:17 Active IV Insertion STAT Care 01/15/24 19:17 Active Pulse Oximetry (ED) STAT Care 01/15/24 19:17 Active CBC W DIFF Stat Lab 01/15/24 19:20 Completed CMP Stat Lab 01/15/24 19:20 Completed D-DIMER QUANTITATIVE Stat Lab 01/15/24 20:03 Completed HCG QUALITATIVE, URINE Stat Lab 01/15/24 19:20 Received MAGNESIUM Stat Lab 01/15/24 19:20 Completed TROPONIN Q4H Lab 01/15/24 19:20 Completed TROPONIN Q4H Lab 01/15/24 23:30 Ordered TROPONIN Q4H Lab 01/16/24 03:30 Ordered TSH [TSH, 3RD Generation] Stat Lab 01/15/24 19:20 Completed UA W/RFX UR CULTURE Stat Lab 01/15/24 19:20 Completed Holter Monitor ONCE RT 01/15/24 20:35 Active Lab/Rad Data: Laboratory Result Diagrams 01/15/24 19:20 01/15/24 19:20 Laboratory Results 01/15/24 01/15/24 01/15/24 Range/Units 20:03 19:20 19:20 WBC (3.98-10.04) x10^3/uL RBC (3.93-5.22) x10^6/uL Hgb (11.2-15.7) g/dL Hct (34.1-44.9) % MCV (79.4-94.8) fL MCH (25.6-32.2) pg MCHC (32.2-35.5) g/dL RDW (11.7-14.4) % Plt Count (182-369) x10^3/uL MPV (9.4-12.3) fL Gran % (34.0-71.1) % Immature Gran % (Auto) (0.001-0.429) % Nucleat RBC Rel Count (0.00-0.2) % Eos # (Auto) (0.04-0.36) x10^3/uL Immature Gran # (Auto) (0.001-0.031) x10^3u/L Absolute Lymphs (auto) (1.18-3.74) x10^3/uL Absolute Monos (auto) (0.24-0.86) x10^3/uL Absolute Nucleated RBC (0.00-0.012) x10^3u/L Lymphocytes % (19.3-51.7) % Monocytes % (4.7-12.5) % Eosinophils % (0.7-5.8) % Basophils % (0.1-1.2) % Absolute Granulocytes (1.56-6.13) x10^3/uL Basophils # (0.01-0.08) x10^3/uL D-Dimer 0.34 (0.0-0.50) mg/L Sodium (135-145) mmol/L Potassium (3.5-5.1) mmol/L Chloride (98-107) mmol/L Carbon Dioxide (22-30) mmol/L Anion Gap (5-15) MEQ/L BUN (7-17) mg/dL Creatinine (0.52-1.04) mg/dL Estimated GFR ML/MIN Glucose (74-106) mg/dL Calcium (8.4-10.2) mg/dL Magnesium (1.6-2.3) mg/dL Total Bilirubin (0.2-1.3) mg/dL AST (14-36) U/L ALT (0-35) U/L Alkaline Phosphatase (38-126) U/L Troponin I < 0.012 (0.000-0.033) ng/mL Serum Total Protein (6.3-8.2) g/dL Albumin (3.5-5.0) g/dL TSH 3rd Generation 5.596 H (0.470-4.680) mIU/L Urine Color (Yellow) Urine Appearance (Clear) Urine pH (4.6-8.0) Ur Specific [place] (1.005-1.030) Urine Protein (Negative) Urine Glucose (UA) (Negative) mg/dL Urine Ketones (Negative) Urine Blood (Negative) Urine Nitrite (Negative) Urine Bilirubin (Negative) Urine Urobilinogen (0.2) mg/dL Ur Leukocyte Esterase (Negative) U Hyaline Cast (Auto) (0-2) /LPF Urine Microscopic RBC (0-5) /HPF Urine Microscopic WBC (0-5) /HPF Ur Epithelial Cells (None Seen) /HPF Urine Bacteria (None Seen) /HPF Urine Culture Reflexed (NO) 01/15/24 01/15/24 01/15/24 Range/Units 19:20 19:20 19:20 WBC 8.2 (3.98-10.04) x10^3/uL RBC 4.14 (3.93-5.22) x10^6/uL Hgb 12.4 (11.2-15.7) g/dL Hct 37.1 (34.1-44.9) % MCV 89.6 (79.4-94.8) fL MCH 30.0 (25.6-32.2) pg MCHC 33.4 (32.2-35.5) g/dL RDW 13.7 (11.7-14.4) % Plt Count 280 (182-369) x10^3/uL MPV 9.9 (9.4-12.3) fL Gran % 67.6 (34.0-71.1) % Immature Gran % (Auto) 0.2 (0.001-0.429) % Nucleat RBC Rel Count 0.0 (0.00-0.2) % Eos # (Auto) 0.11 (0.04-0.36) x10^3/uL Immature Gran # (Auto) 0.02 (0.001-0.031) x10^3u/L Absolute Lymphs (auto) 1.81 (1.18-3.74) x10^3/uL Absolute Monos (auto) 0.68 (0.24-0.86) x10^3/uL Absolute Nucleated RBC 0.00 (0.00-0.012) x10^3u/L Lymphocytes % 22.0 (19.3-51.7) % Monocytes % 8.3 (4.7-12.5) % Eosinophils % 1.3 (0.7-5.8) % Basophils % 0.6 (0.1-1.2) % Absolute Granulocytes 5.54 (1.56-6.13) x10^3/uL Basophils # 0.05 (0.01-0.08) x10^3/uL D-Dimer (0.0-0.50) mg/L Sodium 135 (135-145) mmol/L Potassium 3.6 (3.5-5.1) mmol/L Chloride 101 (98-107) mmol/L Carbon Dioxide 29 (22-30) mmol/L Anion Gap 8.1 (5-15) MEQ/L BUN 14 (7-17) mg/dL Creatinine 0.75 (0.52-1.04) mg/dL Estimated GFR 102.5 ML/MIN Glucose 109 H (74-106) mg/dL Calcium 9.3 (8.4-10.2) mg/dL Magnesium 1.9 (1.6-2.3) mg/dL Total Bilirubin 0.50 (0.2-1.3) mg/dL AST 32 (14-36) U/L ALT 19 (0-35) U/L Alkaline Phosphatase 58 (38-126) U/L Troponin I (0.000-0.033) ng/mL Serum Total Protein 7.2 (6.3-8.2) g/dL Albumin 4.2 (3.5-5.0) g/dL TSH 3rd Generation (0.470-4.680) mIU/L Urine Color Yellow (Yellow) Urine Appearance Clear (Clear) Urine pH 5.5 (4.6-8.0) Ur Specific [place] <=1.005 (1.005-1.030) Urine Protein Negative (Negative) Urine Glucose (UA) Negative (Negative) mg/dL Urine Ketones Negative (Negative) Urine Blood Negative (Negative) Urine Nitrite Negative (Negative) Urine Bilirubin Negative (Negative) Urine Urobilinogen 0.2 (0.2) mg/dL Ur Leukocyte Esterase Trace A (Negative) U Hyaline Cast (Auto) NONE SEEN (0-2) /LPF Urine Microscopic RBC 0-2 (0-5) /HPF Urine Microscopic WBC 3-5 (0-5) /HPF Ur Epithelial Cells None Seen (None Seen) /HPF Urine Bacteria None Seen (None Seen) /HPF Urine Culture Reflexed NO (NO) - Progress Progress: improved Progress Note: 43-year-old female presents to emergency department for evaluation of heart palpitations. D-dimer negative. Troponin negative. EKG sinus rhythm. Laboratory workup essentially nonremarkable. Heart palpitations resolved at our ED. No episodes of heart palpitation at rest while in our ED. We advised an outpatient Holter monitor which patient refused. Patient states she rather to follow-up with her primary care doctor. Portions of this note were created with voice recognition technology. There may be grammatical, spelling, punctuation or sound alike errors Complexity of problem addressed is moderate acute complicated. No critical care time. Complexity of data reviewed and analyzed is moderate. Test ordered test reviewed results analyzed and correlated clinically with history and physical exam. Risk of complication and or risk of morbidity/mortality patient management is low. Vital stable. Time spent to discharge patient approximately 15 minutes. Plan of care established for shared decision making. No social determinants of health present impede follow-up. Portions of this note were created with voice recognition technology. There may be grammatical, spelling, punctuation or sound alike errors 01/15/24 20:58 Counseled pt/family regarding: lab results, diagnosis, need for follow-up - Departure Departure Disposition: Home Clinical Impression: Hypothyroidism, Heart palpitations Condition: Stable Critical Care Time: No Referrals: DOCTOR,NO FAMILY [Primary Care Provider] - Follow up/PCP as directed TIERNEY,CAM, DO [ACTIVE STAFF] - Follow up/PCP as directed Additional Instructions: Discharge/Care Plan HUAN KRISHNAN was seen on 01/15/24 in the Emergency Room. The patient was counseled regarding Diagnosis,Lab results, Imaging studies, need for follow up and when to return to the Emergency Room. Prescriptions given: Discharge Note I have spoken with the patient and/or caregivers. I have explained the patient's condition, diagnosis and treatment plan based on the information available to me at this time. I have answered the patient's and/or caregiver's questions and addressed any concerns. The patient and/or caregivers have as good understanding of the patient's diagnosis, condition and treatment plan as can be expected at this point. The vital signs have been stable. The patient's condition is stable and appropriate for discharge from the emergency department. The patient will pursue further outpatient evaluation with the primary care physician or other designated or consulting physician as outlined in the discharge instructions. The patient and/or caregivers are agreeable to this plan of care and follow-up instructions have been explained in detail. The patient and/or caregivers have received these instruction. The patient/and or caregivers are aware that any significant change in condition or worsening of symptoms should prompt an immediate return to this or the closest emergency department or call 911.
[2024-01-15 21:07] VITALS: RESP 17
[2024-01-15 21:35] VITALS: BP 113/63; PULSE 71; O2SAT 97
[2024-01-15 21:54] LABS: HCG URINE TEST NEGATIVE (NEGATIVE)
== END 2024-01-15 21:37 | disposition home or self-care (01) ==
LOC: ED 18:24
DX: E03.9 Hypothyroidism, unspecified (principal); R00.2 Palpitations; Z79.899 Other long term (current) drug therapy
CPT/HCPCS: 36000; 36415; 80053; 81001; 81025; 83735; 84436; 84443; 84484; 85025; 85379; 93005; 93041; 94760; 99284

== ENCOUNTER 2024-01-16 03:23 | Emergency (ER) | payer OTHER ==
[2024-01-16] MEDS ORDERED: xanAX 0.25 MG ONE (03:49)
[2024-01-16] MEDS: xanAX 0.25 MG PO ONE (03:51)
--- NOTE | 2024-01-16 04:01 | ERPHSYRPT ---
- History of Present Illness Time Seen by Provider: 01/16/24 03:58 Source: patient Exam Limitations: no limitations Patient Subjective Stated Complaint: pt states she woke up around 2:30 and felt like her heart was still racing, felt cold, and anxious Triage Nursing Assessment: pt alert and oriented, answers questions approp. pt ambualtes into room with steady gait noted. skin warm and dry. heart rate 74 on monitor Physician History: 43-year-old female presents to our ED for the second time today. I saw her the first time. Patient came in with the same symptoms. Workup was reassuring essentially nonremarkable. Patient declined a Holter monitor. Patient was at home. She awoke any panic. Patient presents to our ED complaining of feeling "panicked" and experiencing fast heart rate. Vitals are normal in our ED. No chest pain or shortness of breath. No nausea vomiting or diaphoresis. Symptoms are mild to moderate in intensity. No specific worsening or improving factors. Patient voices no other complaints or concerns at this time. Portions of this note were created with voice recognition technology. There may be grammatical, spelling, punctuation or sound alike errors Timing/Duration: today Severity: moderate Modifying Factors: Improves With: nothing Associated Symptoms: denies symptoms Allergies/Adverse Reactions: diphenhydramine [From Benadryl] Allergy (Unknown, Verified 01/16/24 03:45) fentanyl Allergy (Unknown, Verified 01/16/24 03:45) Hives haloperidol [From Haldol] Allergy (Unknown, Verified 01/16/24 03:45) levothyroxine sodium [From Synthroid] Allergy (Verified 01/16/24 03:45) Home Medications: Buspirone HCl 7.5 mg PO TID 12/27/23 [History] Methimazole 2.5 mg PO HS 12/29/23 [History] Hx Tetanus, Diphtheria Vaccination/Date Given: Yes Hx Influenza Vaccination/Date Given: Yes Hx Pneumococcal Vaccination/Date Given: No Travel Risk - International Travel Have you traveled outside of the country in past 3 weeks: No - Emerging Infectious Disease Are you exhibiting symptoms associated with any current EIDs: No Symptoms: Abdominal Pain, Diarrhea - Review of Systems Constitutional: No Symptoms, No Fever, No Chills Eyes: No Symptoms Ears, Nose, & Throat: No Symptoms Respiratory: No Symptoms, No Cough, No Dyspnea Cardiac: No Symptoms, No Chest Pain, No Edema, No Syncope Abdominal/Gastrointestinal: No Symptoms, No Abdominal Pain, No Nausea, No Vomiting, No Diarrhea Genitourinary Symptoms: No Symptoms, No Dysuria Musculoskeletal: No Symptoms, No Back Pain, No Neck Pain Skin: No Symptoms, No Rash Neurological: No Symptoms, No Dizziness, No Focal Weakness, No Sensory Changes Psychological: No Symptoms Endocrine: No Symptoms Hematologic/Lymphatic: No Symptoms Immunological/Allergic: No Symptoms All Other Systems: Reviewed and Negative - Past Medical History Pertinent Past Medical History: Yes Neurological History: No Pertinent History ENT History: No Pertinent History Cardiac History: No Pertinent History Respiratory History: No Pertinent History Endocrine Medical History: Hypothyroidism Musculoskeletal History: No Pertinent History GI Medical History: No Pertinent History History: No Pertinent History Psycho-Social History: Anxiety Female Reproductive Disorders: No Pertinent History - Past Surgical History Past Surgical History: Yes Neuro Surgical History: No Pertinent History Cardiac: No Pertinent History Respiratory: No Pertinent History Gastrointestinal: Cholecystectomy, Other Genitourinary: No Pertinent History Musculoskeletal: No Pertinent History Female Surgical History: No Pertinent History Other Surgical History: gastric sleeve, cyst removed from belly button, oral surgery - Female History Hx Last Menstrual Period: 3 mos Hx Now: No - Social History Smoking Status: Former smoker How long have you smoked: vape Exposure to second hand smoke: No Drug Use: none - Social Determinants of Health Will the patient participate in the screening: Yes Do you worry about a steady place to live?: No Do you have any problems with any of the following?: No known problems In the past 12 months,have you had to go without utilities?: No Transportation Issues: No Has anyone in your support network made you feel unsafe?: No Have you or anyone in your house had to go without enough: No - Nursing Vital Signs Nursing Vital Signs: Initial Vital Signs Pulse Rate 73 01/16/24 03:30 Respiratory Rate 18 01/16/24 03:30 Blood Pressure 112/77 01/16/24 03:30 O2 Sat by Pulse Oximetry 99 01/16/24 03:30 Pain Scale Pain Intensity 0 - Physical Exam General Appearance: no apparent distress, alert Eye Exam: PERRL/EOMI, eyes nml inspection Ears, Nose, Throat Exam: normal ENT inspection, TMs normal, pharynx normal, moist mucous membranes Neck Exam: normal inspection, non-tender, supple, full range of motion Respiratory Exam: normal breath sounds, lungs clear, airway intact, No respiratory distress Cardiovascular Exam: regular rate/rhythm, normal heart sounds, normal peripheral pulses Gastrointestinal/Abdomen Exam: soft, normal bowel sounds, No tenderness, No mass Back Exam: normal inspection, normal range of motion, No CVA tenderness, No vertebral tenderness Extremity Exam: normal inspection, normal range of motion, pelvis stable Neurologic Exam: alert, oriented x 3, cooperative, normal mood/affect, sensation nml, No motor deficits Skin Exam: normal color, warm, dry, No rash Lymphatic Exam: No adenopathy SpO2 Interpretation: normal SpO2: 99 O2 Delivery: Room Air - Course Nursing assessment & vital signs reviewed: Yes EKG Interpreted by Me: RATE (64), Sinus Rhythm, NORMAL AXIS, NORMAL INTERVALS Ordered Tests: Medication Summary Discontinued Medications Generic Name Dose Route Start Last Admin Trade Name Freq PRN Reason Stop Dose Admin Alprazolam 0.25 mg 01/16/24 03:37 01/16/24 03:51 Alprazolam 0.25 Mg Tablet PO 01/16/24 03:38 0.25 mg STAT ONE Administration Alprazolam Confirm 01/16/24 03:49 Alprazolam 0.25 Mg Tablet Administered 01/16/24 03:50 Dose 0.25 mg .ROUTE .QvanteqMED ONE - Progress Progress: improved Progress Note: 43-year-old female presents to our ED for the second time today for the same complaints. Patient's initial workup was nonremarkable. Patient appears very anxious. EKG sinus rhythm at this time. Patient continues to decline Holter monitor. Patient had a complete workup just several hours ago. No indication for repeat laboratory workup. We will discharge patient home. Patient agrees to follow-up with her primary care doctor within 48 hours for reevaluation. Portions of this note were created with voice recognition technology. There may be grammatical, spelling, punctuation or sound alike errors Complexity problem addressed is moderate acute complicated. No critical care time. Complex of data reviewed and analyzed is moderate. EKG performed. Results analyzed and correlated clinically with history and physical exam. Risk of complication and or risk of morbidity/mortality patient management is low. Vital stable. Time spent to discharge patient is approximately 20 minutes. Plan of care established for shared decision making. No social determinants of health presents impede follow-up. Portions of this note were created with voice recognition technology. There may be grammatical, spelling, punctuation or sound alike errors 01/16/24 04:02 Counseled pt/family regarding: diagnosis, need for follow-up - Departure Departure Disposition: Home Clinical Impression: Heart palpitations, Panic attack Condition: Stable Critical Care Time: No Referrals: DOCTOR,NO FAMILY [Primary Care Provider] - Follow up/PCP as directed Additional Instructions: Discharge/Care Plan HUAN KRISHNAN was seen on 01/16/24 in the Emergency Room. The patient was counseled regarding Diagnosis,Lab results, Imaging studies, need for follow up and when to return to the Emergency Room. Prescriptions given: Discharge Note I have spoken with the patient and/or caregivers. I have explained the patient's condition, diagnosis and treatment plan based on the information available to me at this time. I have answered the patient's and/or caregiver's questions and addressed any concerns. The patient and/or caregivers have as good understanding of the patient's diagnosis, condition and treatment plan as can be expected at this point. The vital signs have been stable. The patient's condition is stable and appropriate for discharge from the emergency department. The patient will pursue further outpatient evaluation with the primary care physician or other designated or consulting physician as outlined in the discharge instructions. The patient and/or caregivers are agreeable to this plan of care and follow-up instructions have been explained in detail. The patient and/or caregivers have received these instruction. The patient/and or caregivers are aware that any significant change in condition or worsening of symptoms should prompt an immediate return to this or the closest emergency department or call 911.
[2024-01-16 04:52] VITALS: RESP 16; O2SAT 97
[2024-01-16 05:01] VITALS: BP 108/72; PULSE 66
== END 2024-01-16 04:58 | disposition home or self-care (01) ==
LOC: ED 03:23
DX: F41.0 Panic disorder [episodic paroxysmal anxiety] (principal); R00.2 Palpitations; Z79.899 Other long term (current) drug therapy
CPT/HCPCS: 99282; A9270-GY

== ENCOUNTER 2024-02-18 23:44 | Emergency (ER) | payer OTHER ==
[2024-02-19 00:08] VITALS: BP 114/70; PULSE 78; RESP 18; TEMP 98.1; O2SAT 100
--- NOTE | 2024-02-19 00:17 | ERPHSYRPT ---
- History of Present Illness Time Seen by Provider: 02/19/24 00:10 Source: patient Exam Limitations: no limitations Patient Subjective Stated Complaint: Right forearm closer to elbow has a small red knot that is painful to touch. [id number] x 4cm raised area. Triage Nursing Assessment: Patient stated that she was using the weedeater today and around 4pm she noticed a small red spot that was raised on her right forearm closer to elbow area that is tender to touch. States that she is unknown of any injuries. Physician History: 43-year-old female presents to emergency department for evaluation of arm pain. Patient states she was using a weed eater today. After completing her task patient observed her right forearm had a tender area. Patient states the area is tender where her arm was leaning on the weed Em. Patient became concerned and came to our ED. No other complaints. No obvious blunt trauma no falls no fever. Patient has no significant past medical history otherwise. Family at bedside. Patient voices no other complaints or concerns at this time. Portions of this note were created with voice recognition technology. There may be grammatical, spelling, punctuation or sound alike errors Timing/Duration: today Severity: mild Modifying Factors: Improves With: nothing Associated Symptoms: denies symptoms Allergies/Adverse Reactions: diphenhydramine [From Benadryl] Allergy (Unknown, Verified 02/19/24 00:08) fentanyl Allergy (Unknown, Verified 02/19/24 00:08) Hives haloperidol [From Haldol] Allergy (Unknown, Verified 02/19/24 00:08) levothyroxine sodium [From Synthroid] Allergy (Verified 02/19/24 00:08) Home Medications: Buspirone HCl 7.5 mg PO TID 12/27/23 [History] Methimazole 2.5 mg PO HS 12/29/23 [History] Hx Tetanus, Diphtheria Vaccination/Date Given: Yes Hx Influenza Vaccination/Date Given: Yes Hx Pneumococcal Vaccination/Date Given: No Immunizations Up to Date: Yes Travel Risk - International Travel Have you traveled outside of the country in past 3 weeks: No - Emerging Infectious Disease Are you exhibiting symptoms associated with any current EIDs: No Symptoms: Abdominal Pain, Diarrhea - Review of Systems Constitutional: No Symptoms, No Fever, No Chills Eyes: No Symptoms Ears, Nose, & Throat: No Symptoms Respiratory: No Symptoms, No Cough, No Dyspnea Cardiac: No Symptoms, No Chest Pain, No Edema, No Syncope Abdominal/Gastrointestinal: No Symptoms, No Abdominal Pain, No Nausea, No Vomiting, No Diarrhea Genitourinary Symptoms: No Symptoms, No Dysuria Musculoskeletal: No Symptoms, No Back Pain, No Neck Pain Skin: No Symptoms, No Rash Neurological: No Symptoms, No Dizziness, No Focal Weakness, No Sensory Changes Psychological: No Symptoms Endocrine: No Symptoms Hematologic/Lymphatic: No Symptoms Immunological/Allergic: No Symptoms All Other Systems: Reviewed and Negative - Past Medical History Pertinent Past Medical History: Yes Neurological History: No Pertinent History ENT History: No Pertinent History Cardiac History: No Pertinent History Respiratory History: No Pertinent History Endocrine Medical History: Hypothyroidism Musculoskeletal History: No Pertinent History GI Medical History: No Pertinent History History: No Pertinent History Psycho-Social History: Anxiety Female Reproductive Disorders: No Pertinent History - Past Surgical History Past Surgical History: Yes Neuro Surgical History: No Pertinent History Cardiac: No Pertinent History Respiratory: No Pertinent History Gastrointestinal: Cholecystectomy, Other Genitourinary: No Pertinent History Musculoskeletal: No Pertinent History Female Surgical History: No Pertinent History Other Surgical History: gastric sleeve, cyst removed from belly button, oral surgery - Female History Hx Last Menstrual Period: 4 months Hx Now: No - Social History Smoking Status: Former smoker How long have you smoked: vape Exposure to second hand smoke: No Drug Use: none - Social Determinants of Health Will the patient participate in the screening: Yes Do you worry about a steady place to live?: No Do you have any problems with any of the following?: No known problems In the past 12 months,have you had to go without utilities?: No Transportation Issues: No Has anyone in your support network made you feel unsafe?: No Have you or anyone in your house had to go without enough: No - Nursing Vital Signs Nursing Vital Signs: Initial Vital Signs Temperature 98.1 F 02/18/24 23:45 Pulse Rate 78 02/18/24 23:45 Respiratory Rate 18 02/18/24 23:45 Blood Pressure 114/70 02/18/24 23:45 O2 Sat by Pulse Oximetry 100 02/18/24 23:45 Pain Scale Pain Intensity 2 - Physical Exam General Appearance: no apparent distress, alert Eye Exam: PERRL/EOMI, eyes nml inspection Ears, Nose, Throat Exam: normal ENT inspection, pharynx normal, moist mucous membranes Neck Exam: normal inspection, full range of motion Respiratory Exam: normal breath sounds, airway intact, No respiratory distress Cardiovascular Exam: regular rate/rhythm, normal heart sounds, normal peripheral pulses Gastrointestinal/Abdomen Exam: soft, normal bowel sounds, No tenderness, No mass Back Exam: normal inspection, normal range of motion, No CVA tenderness, No vertebral tenderness Extremity Exam: normal inspection, normal range of motion, pelvis stable, other (2 x 2 cm area of contused skin on the proximal medial aspect of right forearm. The involved extremities neurovascular tact distally compartments are soft cap refill less than 2 seconds. No bony tenderness) Neurologic Exam: alert, oriented x 3, cooperative, normal mood/affect, sensation nml, No motor deficits Skin Exam: normal color, warm, dry, No rash Lymphatic Exam: No adenopathy SpO2 Interpretation: normal SpO2: 100 O2 Delivery: Room Air - Course Nursing assessment & vital signs reviewed: Yes - Progress Progress: improved Progress Note: 43-year-old female presents to our ED for evaluation of an area of tenderness. Physical exam reveals a 2 x 2 cm area of tenderness mild swelling. Intact skin. The area appears to be a contused area of skin. Patient reports that this area is making contact with her weedeater while she was operating the machine. No indication for further workup no bony tenderness. The involved extremities neurovascular tact distally compartments are soft cap refill less than 2 seconds. Patient advised to continue to monitor the area. We expect for symptoms to improve and eventually resolve within a week's time or so. If symptoms worsen patient to return to our ED. She agrees to follow-up with her primary care doctor within 48 hours for reevaluation. She voices no other complaints or concerns at this time. Portions of this note were created with voice recognition technology. There may be grammatical, spelling, punctuation or sound alike errors Complexity of problem addresses moderate acute complicated. No critical care time. Complex of data reviewed and analyzed is none. No specialized testing ordered. Diagnosis made based on history and physical exam. Risk of complication and or risk of morbidity/mortality patient management is low. Vital stable. Time spent to discharge patient is approximately 10 minutes. Plan of care established for shared decision making. No social determinants of health present to impede follow-up. Portions of this note were created with voice recognition technology. There may be grammatical, spelling, punctuation or sound alike errors 02/19/24 00:28 Counseled pt/family regarding: diagnosis, need for follow-up - Departure Departure Disposition: Home Clinical Impression: Arm contusion Condition: Stable Critical Care Time: No Referrals: CANDY LLOYD RN, MSN, [facility] [employer] [Primary Care Provider] - Follow up/PCP as directed Additional Instructions: Discharge/Care Plan HUAN KRISHNAN was seen on 02/19/24 in the Emergency Room. The patient was counseled regarding Diagnosis,Lab results, Imaging studies, need for follow up and when to return to the Emergency Room. Prescriptions given: Discharge Note I have spoken with the patient and/or caregivers. I have explained the patient's condition, diagnosis and treatment plan based on the information available to me at this time. I have answered the patient's and/or caregiver's questions and addressed any concerns. The patient and/or caregivers have as good understanding of the patient's diagnosis, condition and treatment plan as can be expected at this point. The vital signs have been stable. The patient's condition is stable and appropriate for discharge from the emergency department. The patient will pursue further outpatient evaluation with the primary care physician or other designated or consulting physician as outlined in the discharge instructions. The patient and/or caregivers are agreeable to this plan of care and follow-up instructions have been explained in detail. The patient and/or caregivers have received these instruction. The patient/and or caregivers are aware that any significant change in condition or worsening of symptoms should prompt an immediate return to this or the closest emergency department or call 911.
== END 2024-02-19 00:24 | disposition home or self-care (01) ==
LOC: ED 23:44
DX: S50.11XA Contusion of right forearm, initial encounter (principal); X50.1XXA Overexertion from prolonged static or awkward postures, initial encounter; Y93.H2 Activity, gardening and landscaping; Z79.899 Other long term (current) drug therapy
CPT/HCPCS: 99281

== ENCOUNTER 2024-05-18 16:42 | Emergency (ER) | payer OTHER | END 2024-05-18 17:31 | disposition left against medical advice (07) | LOC: ED 16:42 | DX: Z53.21 Procedure and treatment not carried out due to patient leaving prior to being seen by health care provider (principal) ==